=== PATIENT | female | born 1990 | race Caucasian/White ===

== ENCOUNTER 2016-09-28 11:00 | Outpatient (CLI) | payer BC ==
[~2016-09-28] VITALS: Ht 170.2 cm; Wt 61.2 kg
[~2016-09-28 11:00] MED LIST: OMEP20TA7 PO; bcp PO
== END 2016-09-28 11:19 ==
LOC: PREOP 11:00
PROVIDERS: ATTEND Surgery
DX: Z01.818 Encounter for other preprocedural examination (principal); R10.13 Epigastric pain

== ENCOUNTER 2016-10-02 07:56 | Day surgery (SDC) | payer BC ==
[~2016-10-02] VITALS: Ht 170.2 cm; Wt 61.2 kg
--- OUTSIDE RECORDS SUMMARY | 2016-10-02 08:01 | XMS REPORT | Continuity of Care Document ---
Author Author [facility] Organization [facility] Address Unknown Phone Unavailable Support Name Relationship Address Phone NAYANA BRENNER DO Caregiver [address] [place] [address] Insurance Providers Payer Name Policy Number Subscriber Name Relationship [facility] [id number] Sabino Marsh L 18 Self / Same As Patient Advance Directives Directive Response Recorded Date/Time Advance Directives No 09/28/16 10:46am Resuscitation Status Full Code 09/28/16 10:46am Problems No problem information available. Medications Current Home Medications Medication Dose Units Route Directions Days/Qty Instructions Start Date Omeprazole 20 Mg 20 Mg Oral Daily 09/28/16 [Bcp] 1 Tab Oral Daily 09/28/16 Social History Social History Problem Response Recorded Date/Time Alcohol Use Occasionally Uses 09/28/2016 10:46am Recreational Drug Use No 09/28/2016 10:46am Recent Foreign Travel No 09/28/2016 10:45am Recent Infectious Disease Exposure No 09/28/2016 10:45am Smoking Status Never a Smoker 09/28/2016 10:46am Recent Hopitalizations No 09/28/2016 10:46am Query Response Start Date Stop Date Smoking Status Never a Smoker Hospital Discharge Instructions No hospital discharge instructions. Plan of Care Discharge Date 09/28/16 11:19am Prescriptions See Medication Section Functional Status No functional status results. Allergies, Adverse Reactions, Alerts Allergen Type Severity Reaction Status Last Updated sulfamethoxazole ([id number]) Allergy Unknown RASH Active 09/28/16 Trimethoprim Allergy Unknown RASH Active 09/28/16 Immunizations No immunization records. Vital Signs Acute Vital Signs Vital Response Date/Time Height (Feet) 5 feet 09/28/2016 10:45am Height (Inches) 7.00 inches 09/28/2016 10:45am Height (Calculated Centimeters) 170.703261 cm 09/28/2016 10:45am Weight (Pounds) 135 pounds 09/28/2016 10:45am Weight (Ounces) 0.0 oz 09/28/2016 10:45am Weight (Calculated Grams) 86659.97 gm 09/28/2016 10:45am Weight (Calculated Kilograms) 61.147507 kilograms 09/28/2016 10:45am Calculated BMI 21.1 09/28/2016 10:45am Results No known relevant diagnostic tests, laboratory data and/or discharge summary. Procedures No known history of procedures. Encounters Encounter Location Arrival/Admit Date Discharge/Depart Date Attending Provider Departed Clinic [facility] 09/28/16 11:00am 09/28/16 11: 19am NAYANA BRENNER DO
--- OUTSIDE RECORDS SUMMARY | 2016-10-02 08:01 | XMS REPORT | Continuity of Care Document ---
Author Author [facility] Organization [facility] Address Unknown Phone Unavailable Support Name Relationship Address Phone NAYANA BRENNER DO Caregiver [address] [place] [address] Insurance Providers Payer Name Policy Number Subscriber Name Relationship [facility] [id number] Sabino Marsh L 18 Self / Same [...] Type Severity Reaction Status Last Updated sulfamethoxazole ([id number]) Allergy Unknown RASH Active 09/28/16 Trimethoprim Allergy Unknown RASH Active 09/28/16 Immunizations No immunization records. Vital Signs Acute Vital Signs Vital Response Date/Time Height (Feet) 5 feet 09/28/2016 10:45am Height (Inches) 7.00 inches 09/28/2016 10:45am Height (Calculated Centimeters) 170.790464 cm 09/28/2016 10:45am Weight (Pounds) 135 pounds 09/28/2016 10:45am Weight (Ounces) 0.0 oz 09/28/2016 10:45am Weight (Calculated Grams) 07970.97 gm 09/28/2016 10:45am Weight (Calculated Kilograms) 61.614539 kilograms 09/28/2016 10:45am Calculated BMI 21.1 09/28/2016 10:45am Results No known relevant diagnostic tests, laboratory data and/or discharge summary. Procedures No known history of procedures. Encounters Encounter Location Arrival/Admit Date Discharge/Depart Date Attending Provider Departed Clinic [facility] 09/28/16 11:00am 09/28/16 11: 19am NAYANA BRENNER DO
[2016-10-02] MEDS ORDERED: NS IV 1000 ML 1,000 ML IV STA (08:03)
[2016-10-02] MEDS ORDERED: HURRICAINE EXT TUBE (BENZOCAINE) XX PRN (08:15)
[2016-10-02 08:17] VITALS: BP 132/96
[2016-10-02] MEDS ORDERED: MIDAZOLAM 2 MG/2 ML (VERSED) VIAL ONE (08:20)
[2016-10-02] MEDS ORDERED: proPOfol 200 MG/20 ML (DIPRIVAN) VIAL IV ONE (08:20)
--- NOTE | 2016-10-02 08:33 | Progress Note-Pre Operative ---
Pre-Operative Progress Note H&P Reviewed The H&P was reviewed, patient examined and no changes noted. Date H&P Reviewed: Oct 02, 2016 Time H&P Reviewed: 08:33 Pre-Operative Diagnosis: epigastric abdominal pain NAYANA BRENNER DO Oct 02, 2016 8:33 am
[2016-10-02 09:00] VITALS: BP 129/93
[2016-10-02] MEDS ORDERED: SUCR1TAB36 PO (09:06)
[2016-10-02] MEDS ORDERED: PANT40TA2 PO (09:06)
--- NOTE | 2016-10-02 09:06 | Progress Note-Post Operative ---
Post-Operative Progess Note Pre-Operative Diagnosis epigastric abdominal pain Post-Operative Diagnosis Gastritis Post-Op Procedure Note Date of Procedure: Oct 02, 2016 Name of Procedure: egd c biopsy Procedure Note/Findings see note Anesthesia Type per oil filters inspector Estimated blood loss (mL): none Specimen(s) collected antrum NAYANA BRENNER DO Oct 02, 2016 9:06 am
--- NOTE | 2016-10-02 09:07 | Discharge Inst-Simple/Standard ---
Discharge Inst-Standard Patient Instructions/Follow Up Plan of Care/Instructions/FU: Follow up with Dr. Umaña in 3 weeks Take medication as directed. Activity as Tolerated: Yes Discharge Diet: No Restrictions BRIAN RASHEED APRN Oct 02, 2016 09:07
[2016-10-02 09:25] VITALS: BP 131/101
[2016-10-02 09:30] VITALS: BP 131/101
--- NOTE | 2016-10-03 12:40 | OPERATIVE REPORT ---
PROCEDURE PHYSICIAN: NAYANA BRENNER DATE OF PROCEDURE: 10/02/2016 PREOPERATIVE DIAGNOSIS: Epigastric abdominal pain. POSTOPERATIVE DIAGNOSES: Gastritis. PROCEDURE: EGD with biopsy SURGEON: Chasidy. ANESTHESIA: Per [employer]. ESTIMATED BLOOD LOSS: None. COMPLICATIONS: None. INDICATIONS: The patient is a 26-year-old female who has been having epigastric abdominal pain. She is recommended to have EGD for further evaluation. She understands the risks and benefits and wished to proceed with procedure. Consent was signed on the chart. PROCEDURE: The patient was taken to the endoscopy suite, placed in left lateral recumbent position. Timeout was performed. A scope was inserted in the mouth down the esophagus, stomach and into the duodenum without any difficulty. There were no polyps, masses or ulcerations within the duodenum. The scope was slowly retracted back. The stomach was insufflated. Along the body and antrum there were erythematous changes consistent with gastritis. There were no ulcers, polyps, masses or ulcerations visualized. Biopsy of the antrum and was obtained. The scope was retroflexed noting a hiatal hernia. No polyps, masses, or ulcerations. The scope was returned to its normal position slowly withdrawn back to the esophagus. There were no polyps, masses, ulcerations. The scope was slowly retracted until completely removed. The patient tolerated the procedure well without complication. She was taken to recovery room in stable condition. RECOMMENDATIONS: The patient will be started on Protonix 1 daily and Carafate 1 gram 4 times a day. We will have her follow-up in 3 weeks to see how she is doing at that time. If she has any changes prior to that, she should be reevaluated at that time. Job ID: [id number] Dictated Date: 10/02/2016 09:08:14 [employer] Manager [employer] Date: 10/03/2016 12:36:25 / munir
== END 2016-10-02 09:30 | disposition home or self-care (01) ==
LOC: ENDO 07:56
PROVIDERS: ATTEND Surgery
DX: K29.70 Gastritis, unspecified, without bleeding (principal)
CPT/HCPCS: 84703; 88305; 88342

== ENCOUNTER → 2016-10-26 | Outpatient (CLI) | payer BC ==
[~2016-10-26] MED LIST changes: +DOCU-143 PO; +HYDR-3812 PO; +PANT40TA2 PO; +SUCR1TAB36 PO
--- OUTSIDE RECORDS SUMMARY | 2016-10-26 07:54 | XMS REPORT | Continuity of Care Document ---
Author Author [facility] Organization [facility] Address Unknown Phone Unavailable Support Name Relationship Address Phone NAYANA BRENNER DO Caregiver [address] [place] [address] Insurance Providers Payer Name Policy Number Subscriber Name Relationship [facility] [id number] Sabino Marsh L 18 Self / Same [...] Type Severity Reaction Status Last Updated sulfamethoxazole ([id number]) Allergy Unknown RASH Active 09/28/16 Trimethoprim Allergy Unknown RASH Active 09/28/16 Immunizations No immunization records. Vital Signs Acute Vital Signs Vital Response Date/Time Height (Feet) 5 feet 09/28/2016 10:45am Height (Inches) 7.00 inches 09/28/2016 10:45am Height (Calculated Centimeters) 170.635980 cm 09/28/2016 10:45am Weight (Pounds) 135 pounds 09/28/2016 10:45am Weight (Ounces) 0.0 oz 09/28/2016 10:45am Weight (Calculated Grams) 03487.97 gm 09/28/2016 10:45am Weight (Calculated Kilograms) 61.121262 kilograms 09/28/2016 10:45am Calculated BMI 21.1 09/28/2016 10:45am Results No known relevant diagnostic tests, laboratory data and/or discharge summary. Procedures No known history of procedures. Encounters Encounter Location Arrival/Admit Date Discharge/Depart Date Attending Provider Departed Clinic [facility] 09/28/16 11:00am 09/28/16 11: 19am NAYANA BRENNER DO
--- NOTE | 2016-10-26 09:46 | Diagnostic Imaging Report ---
PROCEDURE: US Gallbladder. TECHNIQUE: Multiple real-time grayscale images were obtained over the right upper quadrant in various projections. INDICATION: Epigastric pain. The gallbladder appeared normal. No stone or sludge. The gallbladder nondilated. There is no pathological biliary ductal dilatation. Hepatic parenchyma appeared nonfocal and unremarkable. The unobstructed right kidney normal in size, cortical thickness, and echotexture. There is no ascites or fluid collection. The visualized portions of the pancreas unremarkable. IMPRESSION: Normal right upper quadrant ultrasound. Dictated by: Dictated on workstation # [id number]
== END ==
LOC: RAD 07:50
PROVIDERS: ATTEND Nurse Practitioner
DX: R10.13 Epigastric pain (principal)
CPT/HCPCS: 76705

== ENCOUNTER → 2016-11-05 | Outpatient (CLI) | payer BC ==
[~2016-11-05] MED LIST changes: +CATHETER FLUSH 10 ML SYR IV PRN
--- OUTSIDE RECORDS SUMMARY | 2016-11-05 08:50 | XMS REPORT | Continuity of Care Document ---
Author Author [facility] Organization [facility] Address Unknown Phone Unavailable Support Name Relationship Address Phone NAYANA BRENNER DO Caregiver [address] [place] [address] Insurance Providers Payer Name Policy Number Subscriber Name Relationship [facility] [id number] Sabino Marsh L 18 Self / Same [...] Type Severity Reaction Status Last Updated sulfamethoxazole ([id number]) Allergy Unknown RASH Active 09/28/16 Trimethoprim Allergy Unknown RASH Active 09/28/16 Immunizations No immunization records. Vital Signs Acute Vital Signs Vital Response Date/Time Height (Feet) 5 feet 09/28/2016 10:45am Height (Inches) 7.00 inches 09/28/2016 10:45am Height (Calculated Centimeters) 170.030154 cm 09/28/2016 10:45am Weight (Pounds) 135 pounds 09/28/2016 10:45am Weight (Ounces) 0.0 oz 09/28/2016 10:45am Weight (Calculated Grams) 11503.97 gm 09/28/2016 10:45am Weight (Calculated Kilograms) 61.356411 kilograms 09/28/2016 10:45am Calculated BMI 21.1 09/28/2016 10:45am Results No known relevant diagnostic tests, laboratory data and/or discharge summary. Procedures No known history of procedures. Encounters Encounter Location Arrival/Admit Date Discharge/Depart Date Attending Provider Departed Clinic [facility] 09/28/16 11:00am 09/28/16 11: 19am NAYANA BRENNER DO
--- NOTE | 2016-11-05 12:37 | Diagnostic Imaging Report ---
EXAMINATION: HIDA with EF measurements Indication: Abdominal pain TECHNIQUE: After the intravenous administration of 5.5 mCi of Tc 99m Choletec, imaging over the abdomen was obtained. This was followed by administration of Ensure orally to stimulate intrinsic CCK secretion, followed by continued imaging with ejection fraction measured. FINDINGS: There is homogeneous uptake in the liver with prompt bile duct and gallbladder filling seen. Bowel activity is seen at 20 minutes. Based on further imaging and gallbladder area of interest activity measurements after the administration of Ensure, the gallbladder ejection fraction is estimated at 23%. IMPRESSION: 1. Normal hepatobiliary uptake and Gallbladder filling. 2. Biliary dyskinesia. Poor gallbladder ejection fraction. Dictated by: Dictated on workstation # [id number]
== END ==
LOC: CARD 08:47
PROVIDERS: ATTEND Nurse Practitioner
DX: R10.13 Epigastric pain (principal)
CPT/HCPCS: 78227

== ENCOUNTER 2016-11-09 14:13 | Outpatient (CLI) | payer BC ==
[~2016-11-09] VITALS: Ht 170.2 cm; Wt 63.0 kg
[~2016-11-09 14:13] MED LIST changes: -CATHETER FLUSH 10 ML SYR IV PRN; -DOCU-143 PO; -HYDR-3812 PO
[2016-11-09 14:20] VITALS: BP 141/95
[2016-11-09 14:39] LABS: BASOPHILS % (AUTO) 0 % (0-10); EOSINOPHILS % (AUTO) 0 % (0-10); LYMPHOCYTES # (AUTO) 1.6 X 10^3 (1.0-4.0); LYMPHOCYTES % (AUTO) 36 % (12-44); MEAN CORPUSCULAR HEMOGLOBIN 32 PG (25-34); MEAN CORPUSCULAR HGB CONC 35 G/DL (32-36); MEAN CORPUSCULAR VOLUME 91 FL (80-99); MEAN PLATELET VOLUME 10.8 FL (7.4-10.4); MONOCYTES # (AUTO) 0.3 X 10^3 (0.0-1.0); MONOCYTES % (AUTO) 6 % (0-12); NEUTROPHILS # (AUTO) 2.6 X 10^3 (1.8-7.8); NEUTROPHILS % (AUTO) 58 % (42-75); PLATELET COUNT 171 10^3/uL (130-400); RED BLOOD COUNT 4.62 10^6/uL (4.35-5.85); RED CELL DISTRIBUTION WIDTH 12.2 % (10.0-14.5); WHITE BLOOD COUNT 4.5 10^3/uL (4.3-11.0)
== END 2016-11-09 14:30 | disposition home or self-care (01) ==
LOC: PREOP 14:13
PROVIDERS: ATTEND Surgery
DX: Z01.812 Encounter for preprocedural laboratory examination (principal); Z11.2 Encounter for screening for other bacterial diseases; K82.8 Other specified diseases of gallbladder
CPT/HCPCS: 36415; 85025; 87081

== ENCOUNTER 2016-11-15 09:25 | Day surgery (SDC) | payer BC ==
[~2016-11-15] VITALS: Ht 170.2 cm; Wt 63.0 kg
[2016-11-15] MEDS ORDERED: ceFAZolin 1,000 MG (ANCEF) VIAL ONE (09:48)
[2016-11-15] MEDS ORDERED: NS (IVPB) 50 ML ONE (09:48)
[2016-11-15] MEDS ORDERED: FAMOTIDINE 20MG/2ML IV (PEPCID) ONE (09:48)
[2016-11-15] MEDS ORDERED: ceFAZolin 1 GM/NS 50 ML IVPB IV ONE ×2 (10:15)
[2016-11-15] MEDS ORDERED: CATHETER FLUSH 10 ML SYR IV PRN (10:15)
[2016-11-15 10:17] VITALS: BP 130/86
--- NOTE | 2016-11-15 10:29 | Progress Note-Pre Operative ---
Pre-Operative Progress Note H&P Reviewed The H&P was reviewed, patient examined and no changes noted. Date H&P Reviewed: Nov 15, 2016 Time H&P Reviewed: 10:29 Pre-Operative Diagnosis: biliary dyskinesia NAYANA BRENNER DO Nov 15, 2016 10:29 am
[2016-11-15] MEDS: LACTATED RINGERS 1,000 ML IV PRN ×2 (10:45→13:35)
[2016-11-15] MEDS ORDERED: LACTATED RINGERS 1,000 ML IV ONE ×2 (12:24→13:26)
[2016-11-15] MEDS ORDERED: LIDOCAINE PF 2% 10 ML (XYLOCAINE) AMP ONE (12:24)
[2016-11-15] MEDS ORDERED: SUCCINYLCHOLINE INJ 100 MG/5 ML SYR ONE (12:24)
[2016-11-15] MEDS ORDERED: fentaNYL INJECTION 100 MCG/2 ML AMP ONE ×2 (12:24→13:31)
[2016-11-15] MEDS ORDERED: ROCURONIUM 50 MG/5 ML (ZEMURON) VIAL IV ONE (12:24)
[2016-11-15] MEDS ORDERED: ONDANSETRON 4 MG/2 ML (SDV) Z0FRAN ONE (12:24)
[2016-11-15] MEDS ORDERED: proPOfol 200 MG/20 ML (DIPRIVAN) VIAL IV ONE (12:24)
[2016-11-15] MEDS ORDERED: MIDAZOLAM 2 MG/2 ML (VERSED) VIAL ONE (12:24)
[2016-11-15] MEDS ORDERED: LIDOCAINE 1% INJ 20 ML (XYLOCAINE) VIAL ONE (12:26)
[2016-11-15] MEDS ORDERED: BUPIVACAINE 0.5% 30 ML (SENSORCAINE) VIAL ONE (12:26)
[2016-11-15] MEDS ORDERED: DEXAMETHASONE PF 10 MG/ML (DECADRON) VIAL ONE (13:16)
[2016-11-15] MEDS ORDERED: GLYCOPYRROLATE 0.2 MG/ML (ROBINUL) 2 ML VIAL ONE (14:21)
[2016-11-15] MEDS ORDERED: NEOSTIGMINE (BLOXIVERZ ) 1 MG/1ML 10 ML VIAL ONE (14:21)
--- NOTE | 2016-11-15 14:21 | Progress Note-Post Operative ---
Post-Operative Progess Note Surgeon (s)/Cost Consultant (s) Surgeon NAYANA BRENNER DO Cost Consultant: Dr. Rivera Pre-Operative Diagnosis biliary dyskinesia Post-Operative Diagnosis same Post-Op Procedure Note Date of Procedure: Nov 15, 2016 Name of Procedure Performed: lap dion c ioc Description of the Procedure: see note Findings of the Procedure see note Anesthesia Type general Estimated blood loss (mL): minimal Specimen(s) collected/removed gallbladder NAYANA BRENNER DO Nov 15, 2016 2:21 pm
[2016-11-15] MEDS ORDERED: morphine INJ 10 MG/ML 1ML (SYR OR VIAL) ONE (14:27)
[2016-11-15] MEDS ORDERED: DESFLURANE (SUPRANE) 15 ML INHAL SOLN ONE ×3 (14:30)
[2016-11-15] MEDS ORDERED: MEPERIDINE (DEMEROL) INJ 50 MG/ML IVP PRN (14:45)
[2016-11-15] MEDS ORDERED: ONDANSETRON 4 MG/2 ML (SDV) Z0FRAN IVP PRN (14:45)
[2016-11-15] MEDS ORDERED: PROMETHAZINE INJ 25 MG/ML (PHENERGAN) AMP IVP PRN (14:45)
[2016-11-15] MEDS ORDERED: fentaNYL INJECTION 100 MCG/2 ML AMP IVP PRN (14:45)
[2016-11-15] MEDS ORDERED: HYDR-3812 PO (14:46)
[2016-11-15] MEDS ORDERED: DOCU-143 PO (14:46)
--- NOTE | 2016-11-15 14:47 | Discharge Inst-Simple/Standard ---
Discharge Inst-Standard Discharge Medications New, Converted or Re-Newed RX: RX on Chart Patient Instructions/Follow Up Plan of Care/Instructions/FU: Follow up with Dr. Umaña in 2 weeks Take medication as directed. Activity as Tolerated: No Discharge Diet: No Restrictions Other Inst to Patient Follow up Appt: Make appointment for 2 weeks. Instructions: No lifting greater than 10 pounds. No strenuous activity. May shower in 24 hours, no tub bath or soaking. Use incentive spirometer at home as directed. No Smoking Skin/Wound Care: May remove bandages. You need to leave the white strips over incision on they will fall off on their own. Symptoms to Report: Appetite Changes, Extremity Discoloration, Numbness/Tingling, Swelling Increased , Bleeding Excessive, Eyesight Changes, Pain Increased, Urine Color Change, Constipation(Persistent), Fever over 101 degree F, Pain/Pressure in chest, Urinating Difficulty, Cough Up/Vomit Blood, Heart Beat Irreg/Pounding, Pain/ Pressure in jaw, Vaginal Bleeding Increase, Cramps in feet or legs, Lightheadedness, Pain/Pressure in shoulder, Diarrhea(Persistent), Memory Changes Suddenly, Questions/Concerns, Weight gain consecutive days, Dizziness/ Fainting, Nausea/Vomiting, Shortness of Breath, Weight gain over 2 pounds. If eyes or skin turn yellow notify physician. If questions or concerns contact your physician Or seek help at emergency department. BRIAN RASHEED APRN Nov 15, 2016 14:47
[2016-11-15 15:25] VITALS: BP 119/75
[2016-11-15 15:55] VITALS: BP 130/84
[2016-11-15] MEDS ORDERED: HYDROcodone/APAP 5 MG/325 MG (LORTAB) TAB ONE (16:19)
[2016-11-15 16:25] VITALS: BP 120/71
[2016-11-15] MEDS ORDERED: HYDROcodone/APAP 5 MG/325 MG (LORTAB) TAB PO ONE (16:30)
[2016-11-15 16:40] VITALS: BP 120/71
--- NOTE | 2016-11-15 18:18 | Diagnostic Imaging Report ---
Intraoperative cholangiogram. 8 seconds of fluoroscopy time and 3 cc of contrast utilized. INDICATION: Abdominal pain. Laparoscopic cholecystectomy. FINDINGS: There is good opacification of the biliary tree with no filling defects seen. There is prompt passage into the duodenum with no evidence of obstruction. IMPRESSION: No CBD stones or evidence of obstruction. Dictated by: Dictated on workstation # [id number]
--- NOTE | 2016-11-16 14:27 | OPERATIVE REPORT ---
PROCEDURE PHYSICIAN: NAYANA UMAÑA DATE OF PROCEDURE: 11/15/2016 PREOPERATIVE DIAGNOSIS: Biliary dyskinesia. POSTOPERATIVE DIAGNOSIS: Biliary dyskinesia. PROCEDURE: Laparoscopic cholecystectomy with intraoperative cholangiogram. SURGEON: Dr. Umaña. ROCK WOOL INSULATOR: Dr. Rivera, assist in retraction, dissection, and closure. ANESTHESIA: General. ESTIMATED BLOOD LOSS: Minimal. COMPLICATIONS: None. INDICATIONS: The patient is a 26-year-old female who has been having some epigastric abdominal pain. She had work-up which consisted of an ultrasound and HIDA scan which HIDA scan was consistent with biliary dyskinesia. She understands the risks and benefits of the procedure and wished to proceed with procedure. Consent was signed on the chart. PROCEDURE: The patient was taken to the operating suite. She was prepped and draped in sterile fashion. A surgical pause was performed. A 12 mm incision was made at the umbilicus and dissection was taken down to the fascia, which was then scored and grasped with [place]. The abdomen was then entered and 0 Vicryl was placed in a cqnjcj-oj-xqahi fashion for later closure. The abdomen was then insufflated until a balloon trocar was placed. Under direct visualization of the laparoscope, a 5 mm trocar was placed in the subxiphoid region and 2 5-mm trocars were placed in the right upper quadrant. The gallbladder had some omentum that was caked onto the gallbladder which was then taken down with [place]. The cystic duct and cystic artery were then dissected out. Clips were placed on the proximal and distal portion of the cystic artery. A clip was placed on the distal portion of the cystic duct. The cystic duct was then partially transected and an arrow catheter was inserted and cholangiogram was performed. There was no filling defects. Contrast made its way into the duodenum without difficulty. The catheter was then removed. Clips were placed on proximal portion of the cystic duct and it was completely transected along with the cystic artery. Hook cautery was used to dissect the gallbladder from the gallbladder fossa achieving hemostasis. Once removed, it was placed in an Endobag and removed through the 12 mm trocar site. The abdomen was then irrigated with copious amounts of irrigation and suction. The abdomen was then desufflated. Trocars were removed. The fascia was closed with 0 Vicryl, that has already been placed in a rwivrl-uc-rbotz fashion. A total of 20 mL of 0.5% Marcaine 1% lidocaine 50:50 ratio was used to anesthetize the trocar sites. The skin was then closed with 4-0 Monocryl in a subcuticular fashion. The areas were then washed and dried and Mastisol and Steri-Strips were applied and sterile bandages were applied. The patient tolerated the procedure well without any complications. She was taken to recovery room in stable condition. Job ID: [id number] Dictated Date: 11/15/2016 20:50:40 Feather Trimmer Date: 11/16/2016 14:21:02 / yahir
== END 2016-11-15 16:40 | disposition home or self-care (01) ==
LOC: DELPENDDIS → SDC 09:25
PROVIDERS: ATTEND Surgery
DX: K81.1 Chronic cholecystitis (principal)
CPT/HCPCS: 84703; 88304; 94664

== ENCOUNTER → 2020-02-16 | Outpatient (CLI) | payer BC, OTHER ==
[~2020-02-16] MED LIST changes: +ACHD5005 PO; +DOCU-143 PO
--- NOTE | 2020-02-16 12:38 | Diagnostic Imaging Report ---
INDICATION: Assessment during normal TECHNIQUE: Multiple real-time grayscale images were obtained over the gravid uterus. COMPARISON: None FINDINGS: There is presence of a single viable intrauterine currently in transverse orientation, head to maternal right. Amount of amniotic fluid appears to be within normal limits. Gestational sac appearing unremarkable. Placenta along the right anterior aspect without evidence for previa. Visualized anatomical structures including the kidneys, bladder, stomach, intracranial structures, four-chamber heart, spine and cord insertion site appearing unremarkable. There is noted 2-vessel cord. Maxillofacial structures and profile are not able be well assessed given positioning. Cervical length at 4.9 cm. Ovaries not visualized. Biometrical measurements are as follows: Biparietal 4.51 cm, age 19 weeks 5 days. Head circumference 17.12 cm, age 19 weeks 5 days. Abdominal circumference 13.76 cm, age 19 weeks 2 days. Femur length 3.18 cm, age 20 weeks 0 days. Sonographic estimate age: 19 weeks 5 days. Sonographic estimated date of delivery: 07/07/2020. Estimated Weight: 298 gm (+/- 44 gm). LMP percentile: 22%. heart rate: 144 beats per minute. number: 1 of 1. IMPRESSION: 1. Single viable intrauterine currently in transverse orientation. Sonographic estimated age 19 weeks 5 days for estimated date of delivery 07/07/2020. 2. There is note made of a two-vessel cord. Maximum facial structures not well visualized at this time. Dictated by: Dictated on workstation # [id number]
== END ==
LOC: RAD 09:41
PROVIDERS: ATTEND Obstetrics & Gynecology
DX: Z34.92 Encounter for supervision of normal pregnancy, unspecified, second trimester (principal); Z3A.19 19 weeks gestation of pregnancy
CPT/HCPCS: 76805

== ENCOUNTER 2020-06-24 07:03 | Outpatient (CLI) | payer OTHER ==
[~2020-06-24] VITALS: Ht 170 cm; Wt 86.2 kg
--- NOTE | 2020-06-24 07:05 | NUR ---
SABINO JUAN presented to unit via ambulation from home/ED, accompanied by SO, with c/o DECREASED MOVEMENT. SABINO JUAN weighed, gowned, voided, and to bed. EFHM and TOCO applied, VS taken. SABINO JUAN oriented to bed controls, call light, TV, heat, and A/C controls.
[2020-06-24 07:20] VITALS: BP 133/91
[2020-06-24 07:34] VITALS: BP 133/91
[2020-06-24 07:39] VITALS: BP 133/91
[2020-06-24 07:43] VITALS: BP 134/86
[2020-06-24] MEDS ORDERED: D5 LR IV SOLUTION 1,000 ML IV ONE (07:51)
--- NOTE | 2020-06-24 08:06 | NUR ---
Dr Chester notified of reactive nst noted, pt reports 5-6 kicks and no contractions noted on monitor. Order for discharge received.
[2020-06-24 08:20] VITALS: BP 133/91
[2020-06-24] MEDS ORDERED: PREN-37 PO (08:21)
[2020-06-24] MEDS ORDERED: CETI10CA PO (08:21)
[2020-06-24] MEDS ORDERED: METO50TA7 PO (08:21)
--- NOTE | 2020-06-24 08:30 | NUR ---
Discharge instructions explained, signed and copy to patient. pt verbalized understanding of instructions and denied questions. Ambulates self off unit accompanied by to private vehicle with belongings in hand.
--- NOTE | 2020-06-27 09:33 | Physician Query-Final Dx ---
GRETCHEN NEWBY 06/27/20 0933: Clinic Account Progress/Dx Physician Query: Please give diagnosis Please include # weeks gestation Date of Service Jun 24, 2020 at 07:03 GELA MORGAN DO 06/28/20 1427: Clinic Account Progress/Dx DIAGNOSIS: Diagnosis 38 week IUP Decreased movement GRETCHEN NEWBY Jun 27, 2020 09:33 GELA MORGAN DO Jun 28, 2020 14:27
== END 2020-06-24 08:30 | disposition home or self-care (01) ==
LOC: WSo 07:03 → LDRP 07:04 → WSo 08:30
PROVIDERS: ATTEND Obstetrics & Gynecology
DX: O36.8130 Decreased fetal movements, third trimester, not applicable or unspecified (principal); Z3A.39 39 weeks gestation of pregnancy
CPT/HCPCS: 99213

== ENCOUNTER 2020-07-01 05:09 | Inpatient (IN) | payer OTHER ==
[~2020-07-01] VITALS: Ht 170.8 cm; Wt 87.3 kg
[2020-07-01] VITALS (44 sets, daily range): BP systolic 116–142; BP diastolic 54–91
[~2020-07-01 05:09] MED LIST changes: +CETI10CA PO; +METO50TA7 PO; +PREN-37 PO
--- NOTE | 2020-07-01 06:00 | NUR ---
SABINO JUAN presented to unit via ambulation from ED, accompanied by s.o. for INDUCTION. SABINO JUAN weighed, gowned, voided, and to bed. EFHM and TOCO applied, VS taken. SABINO JUAN oriented to bed controls, call light, TV, heat, and A/C controls.
[2020-07-01] MEDS ORDERED: MISOPROSTOL 100 MCG (CYTOTEC) TAB ONE ×2 (06:21→11:04)
[2020-07-01] MEDS: D5 LR IV SOLUTION 1,000 ML IV SCH ×3 (06:23→21:39)
[2020-07-01 06:31] LABS: BASOPHILS % (AUTO) 0 % (0-10); EOSINOPHILS # (AUTO) 0.1 10^3/uL (0.0-0.3); EOSINOPHILS % (AUTO) 1 % (0-10); HEMATOCRIT 36 % (35-52); HEMOGLOBIN 11.6 g/dL (11.5-16.0); LYMPHOCYTES # (AUTO) 1.4 10^3/uL (1.0-4.0); LYMPHOCYTES % (AUTO) 21 % (12-44); MEAN CORPUSCULAR HEMOGLOBIN 29 pg (25-34); MEAN CORPUSCULAR HGB CONC 32 g/dL (32-36); MEAN CORPUSCULAR VOLUME 90 fL (80-99); MONOCYTES # (AUTO) 0.5 10^3/uL (0.0-1.0); MONOCYTES % (AUTO) 7 % (0-12); NEUTROPHILS # (AUTO) 4.9 10^3/uL (1.8-7.8); NEUTROPHILS % (AUTO) 71 % (42-75); PLATELET COUNT 161 10^3/uL (130-400); WHITE BLOOD COUNT 6.9 10^3/uL (4.3-11.0)
--- NOTE | 2020-07-01 10:10 | History & Physical-OB ---
OB - Chief Complaint & HPI Date/Time Date of Admission: Date of Admission: Jul 01, 2020 at 05:55 Date seen by a Provider: Jul 01, 2020 Time Seen by a Provider: 10:00 Chief Complaint/History OB-Reason for Admission/Chief: Induction of Labor Hx : 1 Hx Para: 0 Expected Date of Delivery: Jul 05, 2020 Gestational Age in Weeks: 39 Gestational Age in Days: 3 Indication for induction: other Admission Nurse Assessment Rev: Yes Allergies and Home Medications Allergies Coded Allergies: sulfamethoxazole (Verified Allergy, Unknown, RASH, 09/28/16) trimethoprim (Verified Allergy, Unknown, RASH, 09/28/16) Home Medications Cetirizine HCl 10 Mg Capsule, 10 MG PO DAILY, (Reported) Metoprolol Succinate 50 Mg Tab.er.24h, 50 MG PO DAILY, (Reported) Vit/Iron Fumarate/FA 1 Each Tablet, 1 EACH PO DAILY, (Reported) Patient Home Medication List Home Medication List Reviewed: Yes OB - History Hx of Present Care: Yes Ultrasounds: Normal mid trimester US (2 vessel cord) Obstetrical Complications: None, Other (abnormal quad screen w/ normal FFCDNA. 2 vessel cord) Medical Complications: None Delivery History Hx Blood Disorders: No Adverse Rxn to Tranfusion: No (n/a) Patient Past Medical History n/a Social History/Family History HIV/AIDS: No Recent Infectious Disease Expo: No Sexually Transmitted Disease: No Alcohol Use: Denies Use Recreational Drug Use: No Immunizations Hepatitis A: Yes Hepatitis B: Yes Date of Influenza Vaccine: May 04, 2020 OB - Admission Exam Physical Exam Vitals: Vital Signs 07/01/20 06:10 Temp 36.2 Pulse 90 Resp 18 B/P (MAP) 132/75 (94) HEENT: NCAT Heart: Rhythm Normal Lungs: Clear Abdomen: Gravid Extremities: Normal Reflexes: Normal Cervical Dilatation: 1cm Station: -1 Membranes: Intact Heart Rate: 130's Accelerations: Accelerations Present Decelerations: No Decelerations Short Term Variability: Present Paper Products Inspector Variability: Average (6-25) Contractions on Admission: 6-10 Minutes Apart Intensity: Mild Pickett Scoring Tool (Modified) Dilation (cm): 1-2cm (1) Effacement (%): 51-79% (2) Descent/Station: -1,0 (2) Cervix Consistency: Soft (2) Cervix Position: Anterior (2) Subtract 1 point for: Nulliparity (-1) Pickett Score: 8 Labs Laboratory Tests Test 07/01/20 06:15 Range/Units White Blood Count 6.9 4.3-11.0 10^3/uL Red Blood Count 3.96 3.80-5.11 10^6/uL Hemoglobin 11.6 11.5-16.0 g/dL Hematocrit 36 35-52 % Mean Corpuscular Volume 90 80-99 fL Mean Corpuscular Hemoglobin 29 25-34 pg Mean Corpuscular Hemoglobin Concent 32 32-36 g/dL Red Cell Distribution Width 12.3 10.0-14.5 % Platelet Count 161 130-400 10^3/uL Mean Platelet Volume 11.0 9.0-12.2 fL Immature Granulocyte % (Auto) 1 % Neutrophils (%) (Auto) 71 42-75 % Lymphocytes (%) (Auto) 21 12-44 % Monocytes (%) (Auto) 7 0-12 % Eosinophils (%) (Auto) 1 0-10 % Basophils (%) (Auto) 0 0-10 % Neutrophils # (Auto) 4.9 1.8-7.8 10^3/uL Lymphocytes # (Auto) 1.4 1.0-4.0 10^3/uL Monocytes # (Auto) 0.5 0.0-1.0 10^3/uL Eosinophils # (Auto) 0.1 0.0-0.3 10^3/uL Basophils # (Auto) 0.0 0.0-0.1 10^3/uL Immature Granulocyte # (Auto) 0.0 0.0-0.1 10^3/uL OB - Assessment/Plan/Diagnosis Assessment Assessment: induction of labor Admission Dx 30 yo @ 39.2 2 vessel cord Abnormal quad GBS neg Admission Status: Inpatient Order (span 2 midnights) Reason for Inpatient Admission: Induction of labor at 39 weeks. Plan Plan: Induction Induction Method: per Misoprostol Protocol GELA MORGAN DO Jul 01, 2020 10:10
[2020-07-01] MEDS ORDERED: MISOPROSTOL 100 MCG (CYTOTEC) TAB PO NR (11:15)
[2020-07-01] MEDS ORDERED: OXYTOCIN PRE-MIX DRIP 500 ML IV SCH (13:53)
[2020-07-01] MEDS ORDERED: OXYTOCIN PRE-MIX DRIP 500 ML IV ONE (13:58)
[2020-07-01] MEDS ORDERED: CATHETER FLUSH 10 ML SYR IV SCH (14:00)
[2020-07-02] VITALS (39 sets, daily range): BP systolic 106–153; BP diastolic 53–94
[2020-07-02] MEDS ORDERED: HYDROmorphone 2 MG/ML VIAL (DILAUDID) ONE (03:11)
[2020-07-02] MEDS ORDERED: HYDROmorphone 2 MG/ML VIAL (DILAUDID) IVP ONE (03:15)
[2020-07-02] MEDS: D5 LR IV SOLUTION 1,000 ML IV SCH (05:25)
[2020-07-02] MEDS ORDERED: MISOPROSTOL 100 MCG (CYTOTEC) TAB PO ONE (06:15)
[2020-07-02] MEDS ORDERED: FAMOTIDINE 20MG/2ML IV (PEPCID) ONE (07:57)
[2020-07-02] MEDS ORDERED: CITRIC ACID/SOB CIT (BICITRA) 30 ML UDC ONE (07:57)
[2020-07-02] MEDS ORDERED: METOCLOPRAMIDE INJ 10 MG/2 ML (REGLAN) ONE (07:57)
[2020-07-02] MEDS ORDERED: CATHETER FLUSH 10 ML SYR IV PRN (08:00)
[2020-07-02] MEDS ORDERED: ceFAZolin 2 GM IV Premixed 50 ML IV ONE (08:00)
[2020-07-02] MEDS ORDERED: CITRIC ACID/SOB CIT (BICITRA) 30 ML UDC PO ONE (08:00)
[2020-07-02] MEDS ORDERED: FAMOTIDINE 20MG/2ML IV (PEPCID) IV ONE (08:00)
[2020-07-02] MEDS ORDERED: METOCLOPRAMIDE INJ 10 MG/2 ML (REGLAN) IV ONE (08:00)
[2020-07-02] MEDS: LACTATED RINGERS 1,000 ML IV PRN ×2 (08:05→09:00)
[2020-07-02] MEDS ORDERED: OXYTOCIN PRE-MIX DRIP 500 ML IV SCH (08:10)
[2020-07-02] MEDS ORDERED: ONDANSETRON 4 MG/2 ML (SDV) Z0FRAN IVP PRN (08:15)
[2020-07-02] MEDS ORDERED: MEASLES,MUMPS,RUBELLA 1 EA INJ SC SCH (08:15)
[2020-07-02] MEDS ORDERED: TETANUS,DIPTH,PERTUSS P/F (BOOSTRIX) 0.5 ML VIAL IM SCH (08:15)
--- NOTE | 2020-07-02 08:17 | Progress Note ---
Standard Progress Note Progress Notes/Assess & Plan Date Seen by a Provider: Jul 02, 2020 Time Seen by a Provider: 07:35 Progress/Assessment & Plan Came in to evaluate the patient which has been an induction since yesterday morning. Cytotec yesterday, and Pitocin throughout the night reaching max dose of 20 mu/ making little to no change since admission despite all measures and adequate contraction pattern. Discussed continuing on with induction and AROM, vs proceeding with PLTCS. Risk involved discussed, and patient and decide to proceed with PLTCS. GELA MORGAN DO Jul 02, 2020 08:17
[2020-07-02] MEDS ORDERED: fentaNYL INJECTION 100 MCG/2 ML AMP ONE (08:24)
[2020-07-02] MEDS ORDERED: ONDANSETRON 4 MG/2 ML (SDV) Z0FRAN ONE (09:03)
[2020-07-02] MEDS ORDERED: PHENYLEPHRINE 100 MCG/ML 10 ML (ANESTHESIA) SYR ONE (09:03)
[2020-07-02] MEDS ORDERED: BUPIVACAINE 0.5% 30 ML (SENSORCAINE) VIAL ONE (09:09)
[2020-07-02] MEDS ORDERED: METHYLERGONOVINE 0.2 MG/ML (METHERGINE) AMP ONE (09:20)
[2020-07-02] MEDS ORDERED: OXYTOCIN PRE-MIX DRIP 1,000 ML IV ONE (09:27)
[2020-07-02] MEDS ORDERED: diphenhydrAMINE 50 MG/ML INJ (BENADRYL) IV PRN (10:15)
[2020-07-02] MEDS ORDERED: ONDANSETRON 4 MG/2 ML (SDV) Z0FRAN IV PRN (10:15)
[2020-07-02] MEDS ORDERED: METOCLOPRAMIDE INJ 10 MG/2 ML (REGLAN) IV PRN (10:15)
[2020-07-02] MEDS ORDERED: NALOXONE 0.4 MG/ML 1 ML (NARCAN) VIAL IV PRN ×2 (10:15)
--- NOTE | 2020-07-02 11:00 | NUR ---
Pt transferred to room 306 via bed accompanied by RN, S.O. and . Pt and S.O. oriented to room and call light. packet explained. VS taken, IV pitocin to pump, toradol given. Calf SCD's on and activated. assistance provided per this RN. Pt and S.O. deny further needs at this time.
[2020-07-02] MEDS: KETOROLAC 30 MG/ML VIAL IV SCH ×2 (11:26→18:16)
--- NOTE | 2020-07-02 11:50 | NUR ---
RT notified of need for IS instruction
--- NOTE | 2020-07-02 12:00 | NUR ---
Report to Rina Elder RN Addendum: 07/02/20 at 1538 by DAV TREADWELL RN Disregard. This RN continuing to care for pt.
--- NOTE | 2020-07-02 13:45 | NUR ---
Pt assisted up to bathroom per this RN. Pt unable to void at this time. Reassurance given. Pericare performed. Pt assisted back to bed. Ice pack to incision and pain pill given.
[2020-07-02] MEDS: HYDROcodone/APAP 5 MG/325 MG (LORTAB) TAB PO PRN ×3 (13:50→21:29)
[2020-07-02] MEDS ORDERED: CATHETER FLUSH 10 ML SYR IV SCH (14:00)
--- NOTE | 2020-07-02 15:15 | NUR ---
Pt assisted up to bathroom at this time. +void 800ml. Pericare performed, fresh vpad and underwear on. Pt requesting second pain pill, see eMar.
--- NOTE | 2020-07-02 19:55 | NUR ---
patient and walking halls. to nursery for assessment. No questions or concerns voiced at this time.
[2020-07-02] MEDS: DOCUSATE SODIUM 100 MG (COLACE) CAP PO SCH ×2 (20:06→21:41)
--- NOTE | 2020-07-02 21:30 | OPERATIVE REPORT ---
DATE OF SERVICE: PREOPERATIVE DIAGNOSES: 1. A 30-year-old G1, P0 at 39 weeks and 4 days gestation. 2. Failure to progress. 3. Two-vessel umbilical cord. POSTOPERATIVE DIAGNOSES: 1. A 30-year-old G1, P0 at 39 weeks and 4 days gestation. 2. Failure to progress. 3. Two-vessel umbilical cord. PROCEDURE: Primary low transverse section. SURGEON: Ramesh Chester DO ANESTHESIA: Spinal. ESTIMATED BLOOD LOSS: 600 mL. URINE OUTPUT: 50 mL clear at the end of the procedure. FLUIDS: 1100 mL lactated Ringer's solution. FINDINGS: A live female infant weighing 7 pounds 5 ounces, Apgars of 7 and 9. Grossly normal appearing uterus, bilateral fallopian tubes and ovaries. SPECIMEN SENT: Placenta. INDICATIONS FOR PROCEDURE: This 30-year-old female is the patient was brought in for induction yesterday morning. She was found to be unfavorable at induction time. Induction reasoning was due to three-vessel cord and increased risk for stillbirth. At her induction, we started with oral misoprostol 100 mcg was given and a second dose was given 50 mcg 4 hours later. Pitocin augmentation was then started and the patient was continued on Pitocin throughout the afternoon and into the evening. She reached a maximum dose of 20 milliunits of Pitocin throughout the night and was di in a regular pattern for over 5 hours with little to no cervical change from admission. She was still 1 to 2 cm this morning when I came in to check on the patient. I discussed with her and her proceeding with the induction, continuing the Pitocin, AROM rupture of membranes and seeing if that helps the progression or to proceed with primary due to failure to progress. Risk of all these options were reviewed with the patient and her . After all their questions were answered, they agreed to proceed with primary . Consent was obtained and the patient was then taken to the operating room. OPERATIVE REPORT IN DETAIL: Once in the operating room, spinal analgesia was found to be adequate. She was placed in the supine position with a leftward tilt, prepped and draped in normal sterile fashion. A timeout was performed and anesthesia was tested. I then make a Pfannenstiel skin incision with a knife and carried it down to the underlying fascia using Bovie cautery. The fascial incision extended laterally using Bovie cautery. The superior aspect of the fascial incision was then grasped with Jorden clamps, tented upward and dissected off the underlying rectus muscles. The inferior aspect of the fascial incision was then grasped with Jorden clamps, tented up and dissected off the underlying rectus muscles. The rectus muscles were then dissected down the midline using sharp dissection, which exposed the peritoneum, which I entered bluntly and extended using blunt traction. Mateusz ring retractor was placed in the peritoneal incision, which offers excellent lateral sidewall retraction. I then identified the lower uterine segment, which was found to be thinned out and make a low transverse incision to the vesicouterine peritoneum and bluntly dissected off the lower uterine segment, creating a bladder flap. I then proceeded with myotomy until membranes were visualized, at which point I extended the uterine incision laterally and superiorly using bandage scissors. Amniotomy was performed in the process of doing this, clear fluid was noted. Infant was found in vertex presentation. With gentle fundal pressure, the infant's head is elevated up the incision where it was delivered through the incision. The nares and oropharynx were bulb suctioned. Nuchal cord was reduced. Anterior and posterior shoulders were delivered and the infant was then brought to the operative field. Cord was doubly clamped and cut and infant was handed off to waiting nurses in attendance. Cord blood was collected, 3-vessel cord with intact placenta was delivered spontaneously thereafter. IV Pitocin was initiated to facilitate uterine contraction. Uterine fundus became firmer with bimanual massage. The uterus was then exteriorized and cleared of all endometrial clots and debris. I then proceeded with closing the uterine incision using 0 Vicryl suture in running locked fashion. Second layer of imbricating 0 Monocryl was placed. Excellent hemostasis was noted after doing this; however, there is still some lagging uterine atony, therefore I have anesthesia give 0.2 mg of Methergine IM and this atony resolved shortly thereafter. Once the uterus was placed back within the pelvis, I copiously irrigated the pelvis using normal saline. Once again, there was no active bleeding noted from any of my dissection planes. I placed Interceed antiadhesive over my low transverse incision and then removed the Mateusz ring retractor. I proceeded with closing the peritoneum using 3-0 Vicryl suture in a running fashion. The rectus muscle was reapproximated using 3-0 Vicryl suture in interrupted fashion. The fascia was reapproximated using 0 Vicryl suture in a running fashion. Subcutaneous tissue was reapproximated using 3-0 plain interrupted subcutaneous stitch and the skin was reapproximated using 4-0 Monocryl in a running subcuticular. Dermabond was applied to incision and sterile dressing with adhesive white tape. The patient tolerated the procedure well and was taken to recovery area in stable condition. Lap and sponge count was correct at the end of the procedure. Instrument counts correct as well. Job ID: [id number] DocumentID: [id number] Dictated Date: 07/02/2020 09:57:26 Spool Cleaner Hand Date: 07/02/2020 21:30:05 Dictated By: DO SHELLY SAHNI
[2020-07-03 00:45] VITALS: BP 130/77
[2020-07-03] MEDS: KETOROLAC 30 MG/ML VIAL IV SCH ×2 (00:47→06:59)
[2020-07-03 04:15] VITALS: BP 119/76
[2020-07-03] MEDS: HYDROcodone/APAP 5 MG/325 MG (LORTAB) TAB PO PRN ×3 (04:25→18:45)
[2020-07-03 05:36] LABS: BASOPHILS % (AUTO) 0 % (0-10); EOSINOPHILS % (AUTO) 0 % (0-10); HEMATOCRIT 31 % (35-52)
[2020-07-03 05:38] LABS: HEMOGLOBIN 9.9 g/dL (11.5-16.0); LYMPHOCYTES # (AUTO) 1.4 10^3/uL (1.0-4.0); LYMPHOCYTES % (AUTO) 12 % (12-44); MEAN CORPUSCULAR HEMOGLOBIN 30 pg (25-34); MEAN CORPUSCULAR HGB CONC 32 g/dL (32-36); MEAN CORPUSCULAR VOLUME 92 fL (80-99); MONOCYTES # (AUTO) 0.7 10^3/uL (0.0-1.0); MONOCYTES % (AUTO) 6 % (0-12); NEUTROPHILS # (AUTO) 9.4 10^3/uL (1.8-7.8); NEUTROPHILS % (AUTO) 80 % (42-75); PLATELET COUNT 127 10^3/uL (130-400); WHITE BLOOD COUNT 11.7 10^3/uL (4.3-11.0)
--- NOTE | 2020-07-03 08:13 | Postpartum Progress Note ---
Note Note Day # 1 Subjective: Patient is without complaints. Ambulating, voiding. Tolerating a regular diet without nausea or vomiting. Normal lochia. Pain is well controlled with oral pain medications. Objective: Physical Exam: General - Alert and oriented, no apparent distress Abdomen - Soft, appropriately tender to palpation, non-distended, fundus firm at umbilicus Extremities - no edema, negative Jung's bilaterally Incision- c/d/i Assessment: POD 1 PLTCS Acute blood loss anemia Plan: Routine care. Encourage breast feeding. Encourage ambulation. Ferrous sulfate supplementation. Plan for discharge today Vitals - Labs Vital Signs - I&O Vital Signs Date Time Temp Pulse Resp B/P (MAP) Pulse Ox O2 Delivery O2 Flow Rate FiO2 07/03/20 04:15 36.4 80 18 119/76 (90) 99 Room Air 07/03/20 00:45 36.7 98 18 130/77 (94) 97 Room Air 07/02/20 20:08 36.1 104 18 128/79 (95) 98 Room Air 07/02/20 18:15 36.4 91 18 134/79 (97) 97 Room Air 07/02/20 15:00 Room Air 07/02/20 13:50 36.7 92 18 133/76 (95) 97 Room Air 07/02/20 11:20 36.4 94 18 119/74 (89) 99 Room Air 07/02/20 10:51 36.1 21 128/86 (100) 98 Room Air 07/02/20 10:36 37.0 20 133/71 (91) 96 Room Air 07/02/20 10:21 36.3 16 124/53 (76) 96 Room Air 07/02/20 10:06 36.7 24 106/73 (84) 96 Room Air 07/02/20 09:51 36.5 24 119/75 (90) 97 Room Air 07/02/20 08:20 94 18 133/91 (105) I & O 07/03/20 07:00 Intake Total 4250 ml Output Total 3850 ml Balance 400 ml Labs Laboratory Tests 07/02/20 08:58: Coronavirus (COVID-19)(PCR) Negative 07/03/20 05:03: White Blood Count 11.7H, Red Blood Count 3.35L, Hemoglobin 9.9L, Hematocrit 31L, Mean Corpuscular Volume 92, Mean Corpuscular Hemoglobin 30, Mean Corpuscular Hemoglobin Concent 32, Red Cell Distribution Width 12.5, Platelet Count 127L, Mean Platelet Volume 12.0, Immature Granulocyte % (Auto) 1, Neutrophils (%) (Auto) 80H, Lymphocytes (%) (Auto) 12, Monocytes (%) (Auto) 6, Eosinophils (%) (Auto) 0, Basophils (%) (Auto) 0, Neutrophils # (Auto) 9.4H, Lymphocytes # (Auto) 1.4, Monocytes # (Auto) 0.7, Eosinophils # (Auto) 0.0, Basophils # (Auto) 0.0, Immature Granulocyte # (Auto) 0.1 GELA MORGAN DO Jul 03, 2020 08:13
--- NOTE | 2020-07-03 08:40 | NUR ---
Dr. Chester here to see pt. Plan for discharge tomorrow
[2020-07-03] MEDS ORDERED: ACHD5005 PO (08:45)
[2020-07-03] MEDS ORDERED: IBUP-844 PO (08:45)
[2020-07-03] MEDS ORDERED: DCS100C PO (08:45)
--- NOTE | 2020-07-03 08:48 | Discharge Inst-Women's Service ---
Discharge Inst-Women's Serv Depart Medication/Instructions New, Converted or Re-Newed RX: RX on Chart Final Diagnosis PO PLTCS day 2 Problems Reviewed?: Yes Consults/Follow Up Additional Follow Up: Yes Orders/Referrals DR. Chester in 7-10 days, and 6 weeks. Activity Activity: Activity as Tolerated Driving Instructions: No Driving for 1 Week NO SMOKING: NO SMOKING Nothing Inside Vagina: No Douching, No [place], No Tampons Diet Discharge Diet: No Restrictions Symptoms to Report to : Bleeding Excessive, Pain Increased, Fever Over 101 Degrees F, Vaginal Bleeding Increase, Questions/Concerns For Any Problems or Questions: Contact Your Physician Skin/Wound Care Infection Signs and Symptoms: Increased Redness, Foul Odor of Wound, Increased Drainage, Skin Itchy or Has a Rash, Increased Swelling, Temperature Above 101 F Operative Area Clean and Dry: Keep Incision Clean/Dry Stitches/[place]/Dermabond: Dermabond, Care of Stitches Bathing Instructions: GELA Soto DO Jul 03, 2020 08:48
[2020-07-03] MEDS: DOCUSATE SODIUM 100 MG (COLACE) CAP PO SCH ×2 (10:58→20:51)
[2020-07-03 10:59] VITALS: BP 117/64
[2020-07-03 14:43] VITALS: BP 128/69
[2020-07-03] MEDS: IBUPROFEN 600 MG (MOTRIN) TAB PO SCH ×2 (14:43→20:51)
[2020-07-03 20:52] VITALS: BP 131/70
[2020-07-04 02:46] VITALS: BP 111/65
[2020-07-04] MEDS: IBUPROFEN 600 MG (MOTRIN) TAB PO SCH ×2 (02:46→09:10)
--- NOTE | 2020-07-04 07:24 | Postpartum Progress Note ---
Note Note Day # 2 Subjective: Patient is without complaints. Ambulating, voiding. Tolerating a regular diet without nausea or vomiting. Normal lochia. Pain is well controlled with oral pain medications. Objective: Physical Exam: General - Alert and oriented, no apparent distress Abdomen - Soft, appropriately tender to palpation, non-distended, fundus firm at umbilicus Extremities - no edema, negative Jung's bilaterally Incision- c/d/i Assessment: POD 2 PLTCS Plan: Routine care. Encourage breast feeding. Encourage ambulation. Ferrous sulfate supplementation. Plan for discharge today Vitals - Labs Vital Signs - I&O Vital Signs Date Time Temp Pulse Resp B/P (MAP) Pulse Ox O2 Delivery O2 Flow Rate FiO2 07/04/20 02:46 36.7 81 18 111/65 (80) 98 Room Air 07/03/20 20:52 36.5 92 18 131/70 (90) 97 Room Air 07/03/20 14:43 36.7 87 18 128/69 (88) 98 Room Air 07/03/20 10:59 36.7 87 18 117/64 (81) 98 Room Air GELA MORGAN DO Jul 04, 2020 07:24
[2020-07-04 07:29] VITALS: BP 120/68
--- NOTE | 2020-07-04 07:30 | NUR ---
RN to room for assessment. VSS. Pt reports minimal bleeding and no clots expressed. Dr. Chester at bedside discussing plan to discharge.
[2020-07-04] MEDS: DOCUSATE SODIUM 100 MG (COLACE) CAP PO SCH (09:10)
--- NOTE | 2020-07-04 09:20 | NUR ---
Discharge instructions explained to pt with copy provided. Pt verbalizes understanding and signs to verify. Pt denies any needs or concerns at this time
[2020-07-04 12:30] VITALS: BP 120/68
--- NOTE | 2020-07-04 12:30 | NUR ---
Pt ambulates off unit with , S.O, and RN. All belongings remain with pt. No s/s of distress noted.
== END 2020-07-04 12:30 | disposition home or self-care (01) | DRG 787 ==
LOC: LDRP 05:55 → WS 07-02 08:41
PROVIDERS: ADMIT Obstetrics & Gynecology; ATTEND Obstetrics & Gynecology
PROC: 10D00Z1 Extraction of Products of Conception, Low, Open Approach (ICD-10-PCS; principal; 2020-07-02 08:37)
DX: O62.0 Primary inadequate contractions (principal); D62 Acute posthemorrhagic anemia; Z3A.39 39 weeks gestation of pregnancy; Z37.0 Single live birth; O69.89X0 Labor and delivery complicated by other cord complications, not applicable or unspecified; O90.81 Anemia of the puerperium
CPT/HCPCS: 36415; 85025; 86850; 86900; 86901; 87635; 94664

== ENCOUNTER → 2022-05-29 | Outpatient (CLI) | payer OTHER ==
[~2022-05-29] MED LIST changes: +DOCU-239 PO; +IBUP-844 PO; +OMEP20TA56 PO; -OMEP20TA7 PO
--- NOTE | 2022-05-29 15:55 | Diagnostic Imaging Report ---
PROCEDURE: US OB SINGLE FETUS <14 WKS. TECHNIQUE: Multiple real-time grayscale images were obtained over the gravid uterus in various projections. INDICATION: Abnormal hCG levels. FINDINGS: There is a smith intrauterine gestation. Cardiac pulsatility can be confirmed visually however owing to activity and motion, we were unable to measure its actual rate. Visually, it appeared unremarkable. There is a smith intrauterine gestation with measurements correlating with an estimated age 8 weeks 6 days. This is congruent with the last menstrual period. The left ovary could not be visualized. The right ovary appeared normal. No abnormal cyst formation. Amniotic fluid volume is unremarkable. The yolk sac is identified. No rubi-sac or subchorionic hemorrhage. No evidence for extrauterine gestation. No maternal free fluid. IMPRESSION: Early smith viable IUP measures 8 weeks 6 days with no pathological finding identified and nonvisualization of the left ovary. Dictated by: Dictated on workstation # [id number]
== END ==
LOC: RAD 14:00
PROVIDERS: ATTEND Nurse Practitioner Women's Health
DX: O00.01 Abdominal pregnancy with intrauterine pregnancy (principal); Z3A.08 8 weeks gestation of pregnancy
CPT/HCPCS: 76801

== ENCOUNTER → 2022-08-15 | Outpatient (CLI) | payer OTHER ==
--- NOTE | 2022-08-15 14:26 | Diagnostic Imaging Report ---
INDICATION: anatomy survey TECHNIQUE: Multiple real-time grayscale images were obtained over the gravid uterus. COMPARISON: None FINDINGS: A live intrauterine in transverse lie with head to maternal left. Placenta is posteriorly positioned. The inferior border of the placenta is less than 2 cm from the internal cervical os and may partially cover the internal cervical os. The ROSETTE is normal at 15.05 cm. Cervix measures approximately 7.1 cm in length. Following anatomy structures are visualized and normal: Right ventricular outflow tract, four-chamber heart, left ventricular outflow tract, stomach, umbilical cord insertion, kidneys, urinary bladder, three-vessel cord, cerebral ventricles, cerebellum, cisterna magna, spine, profile and extremities. Biometrical measurements are as follows: Biparietal 4.73 cm, age 20 weeks 3 days. Head circumference 17.59 cm, age 20 weeks 1 days. Abdominal circumference 14.74 cm, age 20 weeks 1 days. Femur length 3.21 cm, age 20 weeks 0 days. Sonographic estimate age: 20 weeks 2 days. Sonographic estimated date of delivery: 12/31/2022. Estimated Weight: 328 gm (+/- 48 gm). LMP percentile: 32%. heart rate: 129 beats per minute. number: 1 of 1. IMPRESSION: 1. Placenta previa with partial coverage of the internal cervical os. Follow-up ultrasound is recommended to reassess placental position as the progresses. 2. Normal anatomy survey. Dictated by: Dictated on workstation # [id number]
== END ==
LOC: RAD 11:42
PROVIDERS: ATTEND Nurse Practitioner Women's Health
DX: Z34.02 Encounter for supervision of normal first pregnancy, second trimester (principal); Z3A.20 20 weeks gestation of pregnancy
CPT/HCPCS: 76805

== ENCOUNTER 2022-12-18 05:42 | Outpatient (CLI) | payer OTHER ==
[~2022-12-18] VITALS: Ht 170.2 cm; Wt 86.8 kg
[2022-12-24] MEDS ORDERED: DOCU100C37 PO (07:21)
[2022-12-24] MEDS ORDERED: IBUP-844 PO (07:22)
[2022-12-24] MEDS ORDERED: ACHD5005 PO (07:22)
== END 2022-12-18 18:07 | disposition home or self-care (01) ==
LOC: PREOP 05:42
PROVIDERS: ATTEND Obstetrics & Gynecology
DX: Z01.818 Encounter for other preprocedural examination (principal)

== ENCOUNTER 2022-12-24 05:35 | Inpatient (IN) | payer OTHER ==
[2022-12-24] VITALS (12 sets, daily range): BP systolic 106–132; BP diastolic 58–95
[~2022-12-24] VITALS: Ht 170.2 cm; Wt 86.8 kg
[2022-12-24] MEDS ORDERED: ceFAZolin INJECTION 2,000 MG in NS (IVPB) 50 ML IV ONE (05:45)
[2022-12-24] MEDS ORDERED: CATHETER FLUSH 10 ML SYR IV PRN (05:45)
[2022-12-24] MEDS ORDERED: LACTATED RINGERS 1,000 ML IV PRN ×2 (05:45)
[2022-12-24] MEDS ORDERED: METOCLOPRAMIDE INJ 10 MG/2 ML (REGLAN) IV ONE (05:45)
[2022-12-24] MEDS ORDERED: FAMOTIDINE 20MG/2ML IV (PEPCID) IV ONE (05:45)
[2022-12-24] MEDS ORDERED: CITRIC ACID/SOB CIT (BICITRA) 30 ML UDC PO ONE (05:45)
[2022-12-24 06:16] LABS: BASOPHILS % (AUTO) 0 % (0-10); LYMPHOCYTES % (AUTO) 19 % (12-44); MEAN CORPUSCULAR VOLUME 85 fL (80-99)
[2022-12-24 06:18] LABS: EOSINOPHILS % (AUTO) 1 % (0-10); HEMATOCRIT 32 % (35-52); HEMOGLOBIN 10.4 g/dL (11.5-16.0); LYMPHOCYTES # (AUTO) 1.6 10^3/uL (1.0-4.0); MEAN CORPUSCULAR HEMOGLOBIN 28 pg (25-34); MEAN CORPUSCULAR HGB CONC 33 g/dL (32-36); MEAN PLATELET VOLUME 10.8 fL (9.0-12.2); MONOCYTES # (AUTO) 0.5 10^3/uL (0.0-1.0); MONOCYTES % (AUTO) 6 % (0-12); NEUTROPHILS # (AUTO) 6.2 10^3/uL (1.8-7.8); NEUTROPHILS % (AUTO) 73 % (42-75); PLATELET COUNT 145 10^3/uL (130-400); WHITE BLOOD COUNT 8.5 10^3/uL (4.3-11.0)
[2022-12-24 06:23] LABS: SMEAR SCAN COMMENT YES
[2022-12-24 06:28] LABS: ALBUMIN 3.2 GM/DL (3.2-4.5); POTASSIUM 3.6 MMOL/L (3.6-5.0)
[2022-12-24 06:29] LABS: CALCIUM 8.8 MG/DL (8.5-10.1)
[2022-12-24 06:30] LABS: TOTAL PROTEIN 6.2 GM/DL (6.4-8.2)
[2022-12-24 06:32] LABS: BILIRUBIN,TOTAL 0.2 MG/DL (0.1-1.0)
[2022-12-24 06:34] LABS: CREATININE SERUM 0.62 MG/DL (0.60-1.30)
--- NOTE | 2022-12-24 06:41 | History & Physical-OB ---
OB - Chief Complaint & HPI Date/Time Date of Admission: Date of Admission: December 24, 2022 at 05:35 Date seen by a Provider: December 24, 2022 Time Seen by a Provider: 07:00 Chief Complaint/History OB-Reason for Admission/Chief: Section Hx : 2 Hx Para: 1 Expected Date of Delivery: December 31, 2022 Gestational Age in Weeks: 39 Gestational Age in Days: 0 Indication for : desires repeat Admission Nurse Assessment Rev: Yes Allergies and Home Medications Allergies Coded Allergies: sulfamethoxazole (Verified Allergy, Unknown, RASH, 12/18/22) trimethoprim (Verified Allergy, Unknown, RASH, 12/18/22) Patient Home Medication List Home Medication List Reviewed: Yes Cetirizine HCl (Zyrtec) 10 Mg Capsule, 10 MG PO DAILY, (Reported) Entered as Reported by: SON ELAM on 06/24/20820 Last Action: Reviewed Metoprolol Succinate (Metoprolol Succinate) 50 Mg Tab.er.24h, 50 MG PO DAILY, (Reported) Entered as Reported by: SON ELAM on 06/24/20820 Last Action: Reviewed Vit/Iron Fumarate/FA ( Tablet) 1 Each Tablet, 1 EACH PO DAILY, (Reported) Entered as Reported by: SON ELAM on 06/24/20820 Last Action: Reviewed Discontinued Medications Docusate Sodium (Dok) 100 Mg Capsule, 100 MG PO BID PRN for CONSTIPATION-1ST LINE Discontinued Reason: No Longer Taking Prescribed by: GELA MORGAN on 07/03/20844 Hydrocodone/Acetaminophen (Hydrocodone-Acetamin 5-325 mg) 1 Each Tablet, 1-2 TAB PO Q6HR PRN for PAIN-MODERATE (5-7) Discontinued Reason: No Longer Taking Prescribed by: GELA MORGAN on 07/03/20844 Ibuprofen (Ibu) 600 Mg Tablet, 600 MG PO Q6H Discontinued Reason: No Longer Taking Prescribed by: GELA MORGAN on 07/03/20844 OB - History Hx of Present Ultrasounds: Normal mid trimester US Obstetrical Complications: None Medical Complications: None Information Induced Hypertension: No Maternal Gestational Diabetes: No Hemorrhage: No Obstetrical History Hx : 2 Hx Para: 1 Hx # Term Pregnancies: 1 Number of Living Children: 1 Hx Termination: No Hx Multiple Gestation: No Hx Ectopic : No Hx Stillbirth: No Hx Complication: No Hx Induced Hypertens: No Hx Maternal Gestational Diabet: No Hx Hemorrhage: No Delivery History Hx Dystocia: No Hx Forceps Assisted Delivery: No Hx Vacuum Extraction Assisted: No Hx Placenta Abnormality: No Hx Distress: No Hx Large For Gestational Age I: No Hx Small for Gestational Age I: No Hx Section: Yes Hx Vaginal Delivery Post C-Sec: No Hx Blood Disorders: No Adverse Rxn to Tranfusion: No (n/a) Patient Past Medical History Benign HTN Social History/Family History Alcohol Use: Denies Use Recreational Drug Use: No Smoking Cessation: Never smoker 2nd Hand Smoke Exposure: No Immunizations Influenza Vaccine Up-to-Date: Yes; Up-to-Date First/Initial COVID19 Vaccine: 11/06 Second COVID19 Vaccination: 12/07 Third COVID19 Vaccination Date: 12/08 COVID19 Vaccine Set Decorator: [employer] Hepatitis A: Yes Hepatitis B: Yes Tetanus Booster (TDap): Less than 5yrs Rubella: immune RPR/VDRL: Negative GBS Status: Negative HBsAG: Negative OB - Admission Exam Physical Exam Vitals: Vital Signs 12/24/22 05:46 Temp 36.8 Pulse 96 Resp 18 B/P (MAP) 130/80 (97) Pulse Ox 98 O2 Delivery Room Air Heart: Rhythm Normal Lungs: Clear Abdomen: Gravid Extremities: Edema Reflexes: Normal Membranes: Intact Labs Laboratory Tests Test 12/24/22 05:50 Range/Units White Blood Count 8.5 4.3-11.0 10^3/uL Red Blood Count 3.71 L 3.80-5.11 10^6/uL Hemoglobin 10.4 L 11.5-16.0 g/dL Hematocrit 32 L 35-52 % Mean Corpuscular Volume 85 80-99 fL Mean Corpuscular Hemoglobin 28 25-34 pg Mean Corpuscular Hemoglobin Concent 33 32-36 g/dL Red Cell Distribution Width 13.1 10.0-14.5 % Platelet Count 145 130-400 10^3/uL Mean Platelet Volume 10.8 9.0-12.2 fL Immature Granulocyte % (Auto) 1 % Neutrophils (%) (Auto) 73 42-75 % Lymphocytes (%) (Auto) 19 12-44 % Monocytes (%) (Auto) 6 0-12 % Eosinophils (%) (Auto) 1 0-10 % Basophils (%) (Auto) 0 0-10 % Neutrophils # (Auto) 6.2 1.8-7.8 10^3/uL Lymphocytes # (Auto) 1.6 1.0-4.0 10^3/uL Monocytes # (Auto) 0.5 0.0-1.0 10^3/uL Eosinophils # (Auto) 0.0 0.0-0.3 10^3/uL Basophils # (Auto) 0.0 0.0-0.1 10^3/uL Immature Granulocyte # (Auto) 0.1 0.0-0.1 10^3/uL Percent Immature Platelet Fraction 5.3 0.0-7.6 % Sodium Level 138 135-145 MMOL/L Potassium Level 3.6 3.6-5.0 MMOL/L Chloride Level 109 H 98-107 MMOL/L Carbon Dioxide Level 18 L 21-32 MMOL/L Anion Gap 11 5-14 MMOL/L Blood Urea Nitrogen 7 7-18 MG/DL Creatinine 0.62 0.60-1.30 MG/DL Estimat Glomerular Filtration Rate 121 BUN/Creatinine Ratio 11 Glucose Level 80 70-105 MG/DL Calcium Level 8.8 8.5-10.1 MG/DL Corrected Calcium 9.4 8.5-10.1 MG/DL Total Bilirubin 0.2 0.1-1.0 MG/DL Aspartate Amino Transf (AST/SGOT) 15 5-34 U/L Alkaline Phosphatase 158 H 40-136 U/L Total Protein 6.2 L 6.4-8.2 GM/DL Albumin 3.2 3.2-4.5 GM/DL Smear Scan YES OB - Assessment/Plan/Diagnosis Assessment Assessment: section Admission Dx Repeat section Admission Status: Inpatient Order (span 2 midnights) Reason for Inpatient Admission: Repeat section Plan Plan: Section NATALIO CHI December 24, 2022 06:41
[2022-12-24] MEDS ORDERED: fentaNYL INJ 100 MCG/2 ML AMP ONE (07:01)
[2022-12-24] MEDS ORDERED: OXYTOCIN PRE-MIX DRIP 500 ML IV ONE (07:01)
--- NOTE | 2022-12-24 07:20 | Discharge Inst-Women's Service ---
Discharge Inst-Women's Serv Depart Medication/Instructions New, Converted or Re-Newed RX: Transmitted to Pharmacy Final Diagnosis POD 2 RLTCS Problems Reviewed?: Yes Consults/Follow Up Additional Follow Up: Yes Orders/Referrals Dr. Chester in 7-10 days and in 6 weeks Activity Activity: Activity as Tolerated Driving Instructions: No Driving for 1 Week NO SMOKING: NO SMOKING Nothing Inside Vagina: No Douching, No [place], No Tampons Diet Discharge Diet: No Restrictions Symptoms to Report to : Bleeding Excessive, Pain Increased, Fever Over 101 Degrees F, Vaginal Bleeding Increase, Questions/Concerns For Any Problems or Questions: Contact Your Physician Skin/Wound Care Infection Signs and Symptoms: Increased Redness, Foul Odor of Wound, Increased Drainage, Skin Itchy or Has a Rash, Increased Swelling, Temperature Above 101 F Operative Area Clean and Dry: Keep Incision Clean/Dry Stitches/[place]/Dermabond: Dermabond, Care of Stitches Bathing Instructions: GELA Soto DO December 24, 2022 07:20
[2022-12-24] MEDS ORDERED: DOCU100C37 PO (07:21)
[2022-12-24] MEDS ORDERED: ACHD5005 PO (07:22)
[2022-12-24] MEDS ORDERED: IBUP-844 PO (07:22)
[2022-12-24] MEDS ORDERED: MEASLES,MUMPS,RUBELLA 1 EA INJ SC SCH (07:30)
[2022-12-24] MEDS ORDERED: TETANUS,DIPTH,PERTUSS P/F (BOOSTRIX) 0.5 ML VIAL IM SCH (07:30)
[2022-12-24] MEDS ORDERED: ONDANSETRON 4 MG/2 ML (SDV) Z0FRAN IVP PRN (07:30)
[2022-12-24] MEDS ORDERED: NALOXONE 0.4 MG/ML 1 ML (NARCAN) VIAL IV PRN (07:30)
[2022-12-24] MEDS: OXYTOCIN PRE-MIX DRIP 500 ML IV SCH ×2 (09:00→12:51)
--- NOTE | 2022-12-24 09:02 | OPERATIVE REPORT ---
DATE OF SERVICE: 12/24/2022 PREOPERATIVE DIAGNOSES: 1. A 32-year-old at 39 weeks' gestation. 2. Previous section. POSTOPERATIVE DIAGNOSES: 1. A 32-year-old at 39 weeks' gestation. 2. Previous section. PROCEDURE: Repeat low transverse section. SURGEON: Ramesh Morgan DO ANESTHESIA: Spinal. ESTIMATED BLOOD LOSS: 450 mL. URINE OUTPUT: 25 mL clear at the end of the procedure. FLUIDS: 1400 mL lactated Ringer's solution. FINDINGS: A live female infant weighing 6 pounds 9 ounces, Apgars of 8 and 9. Grossly normal appearing uterus, fallopian tubes and ovaries. SPECIMEN SENT: None. INDICATIONS FOR PROCEDURE: This 32-year-old female is a patient who sought care in my office. Her care was uncomplicated with exception for need for repeat . We discussed with the patient risk of repeat in the office. She was agreeable to proceed. Risk of bleeding, infection, damage to surrounding structures including but not limited to bowel, bladder, ureter, kidneys, possible need for reoperation, postoperative complications that may occur, recovery timeframe, risk from anesthesia and even were all discussed with the patient in detail. After all of her questions were answered, consent was obtained, the patient was taken to the operating room. OPERATIVE REPORT IN DETAIL: Once in the operating room, spinal analgesia was found to be adequate. She was placed in supine position with leftward tilt, prepped and draped in normal sterile fashion. Timeout was performed. Anesthesia was tested and then made a Pfannenstiel skin incision through a preexisting scar using knife and carried to underlying fascia using Bovie cautery. The fascial incision was extended laterally using Bovie cautery. The superior aspect of the fascial incision was then grasped with Jorden clamps, tented up and dissected off the underlying rectus muscles. The inferior aspect of the fascial incision was then grasped with Jorden clamps, tented up and dissected off the underlying rectus muscles. The rectus muscles were dissected sharply down the midline, which exposed the peritoneum, which I entered bluntly, extended using blunt traction. Mateusz ring retractor was placed in the peritoneal incision, which offers excellent lateral sidewall retraction. I identified lower uterine segment was found to be thinned out. I made a low transverse incision to the vesicouterine peritoneum and bluntly dissected off the lower uterine segment, creating a bladder flap. I then proceeded my myotomy until membranes were visualized, at which point I extended the uterine incision laterally and superiorly using bandage scissors. Amniotomy was then performed using Allis clamp. Clear fluid was noted. The infant was found in the breech presentation. This is a juanita breech. The 's buttocks was elevated up to the incision where it delivered through the incision up to the upper thoracic region, at which point I delivered the arms by sweeping them across the chest. I elevated the infant's body into the air and with gentle flexion delivered the 's head through the incision where the nares and oropharynx were bulb suctioned and infant has its cord duly clamped and cut and was handed off to waiting nurses in attendance. Cord blood was collected. Three-vessel cord intact placenta delivered spontaneously thereafter. IV Pitocin is initiated to facilitate uterine contraction. Uterine fundus confirmed by manual massage. The uterus was exteriorized and cleared of all endometrial clots and debris. I then proceeded with closing the uterine incision using 0 Vicryl suture in a running locked fashion. Second layer of imbricating 0 Monocryl was placed. Excellent hemostasis was noted after doing this. I then placed the uterus back in the pelvis and copiously irrigated the pelvis using normal saline. Once again, there was active bleeding from my dissection planes. I placed Interceed antiadhesive over my low transverse incision. I removed the Mateusz ring retractor and then proceeded with closing the peritoneum using 3-0 Vicryl suture in a running fashion. The rectus muscles were reapproximated using 3-0 Vicryl suture in interrupted fashion. The fascia was reapproximated using 0 Vicryl suture in a running fashion. The subcutaneous tissue was reapproximated using 3-0 plain interrupted subcutaneous stitch and skin reapproximated using 4-0 Monocryl in a running subcuticular. Dermabond was applied to incision, sterile dressing with adhesive white tape. The patient tolerated the procedure well and sent to recovery area in stable condition. Lap and sponge counts were correct at the end of the procedure. Instrument counts were correct as well. Two grams Ancef were given preoperatively for infection prophylaxis. Job ID: [id number] DocumentID: [id number] Dictated Date: 12/24/2022 08:28:11 Technical Service Representative Date: 12/24/2022 09:00:00 Dictated By: RAMESH MORGAN DO
[2022-12-24] MEDS: meTOproloL SUCCINATE 50 MG (TOPROL XL) TAB PO SCH (09:13)
[2022-12-24] MEDS: DOCUSATE SODIUM 100 MG (COLACE) CAP PO SCH ×2 (09:14→21:01)
[2022-12-24] MEDS: KETOROLAC 30 MG/ML VIAL IV SCH ×3 (09:32→21:01)
[2022-12-24] MEDS: METOCLOPRAMIDE 10 MG (REGLAN) TAB PO SCH ×3 (11:52→23:29)
[2022-12-24] MEDS: HYDROcodone/APAP 5 MG/325 MG (LORTAB) TAB PO PRN ×2 (11:53→17:44)
[2022-12-24] MEDS: CATHETER FLUSH 10 ML SYR IV SCH ×2 (14:00→21:01)
[2022-12-24] MEDS: SIMETHICONE 80 MG (MYLICON) CHEW PO SCH (23:29)
[2022-12-25 03:10] VITALS: BP 133/79
[2022-12-25] MEDS: HYDROcodone/APAP 5 MG/325 MG (LORTAB) TAB PO PRN ×3 (03:10→17:42)
[2022-12-25] MEDS: CATHETER FLUSH 10 ML SYR IV SCH (03:10)
[2022-12-25] MEDS: KETOROLAC 30 MG/ML VIAL IV SCH (03:10)
[2022-12-25 05:33] LABS: BASOPHILS % (AUTO) 0 % (0-10); EOSINOPHILS % (AUTO) 0 % (0-10); MEAN PLATELET VOLUME 11.4 fL (9.0-12.2)
[2022-12-25 05:35] LABS: HEMATOCRIT 28 % (35-52); HEMOGLOBIN 8.9 g/dL (11.5-16.0); LYMPHOCYTES # (AUTO) 1.3 10^3/uL (1.0-4.0); LYMPHOCYTES % (AUTO) 14 % (12-44); MEAN CORPUSCULAR HEMOGLOBIN 28 pg (25-34); MEAN CORPUSCULAR HGB CONC 32 g/dL (32-36); MEAN CORPUSCULAR VOLUME 87 fL (80-99); MONOCYTES # (AUTO) 0.6 10^3/uL (0.0-1.0); MONOCYTES % (AUTO) 6 % (0-12); NEUTROPHILS # (AUTO) 7.3 10^3/uL (1.8-7.8); NEUTROPHILS % (AUTO) 79 % (42-75); PLATELET COUNT 125 10^3/uL (130-400); WHITE BLOOD COUNT 9.3 10^3/uL (4.3-11.0)
--- NOTE | 2022-12-25 06:41 | Postpartum Progress Note ---
NATALIO CHI 12/25/22 0641: Note Note Day # 1 Subjective: Patient is without complaints. Ambulating, voiding. Tolerating a regular diet without nausea or vomiting. Normal lochia. Pain is well controlled with oral pain medications. Objective: Physical Exam: General - Alert and oriented, no apparent distress Abdomen - Soft, appropriately tender to palpation, non-distended, fundus firm at umbilicus Extremities - no edema, negative Jung's bilaterally Incision - Clean, dry and intact Assessment: Post- day # 1, status post section. Recovering well, hemodynamically stable Thrombocytopenia Acute on chronic blood loss anemia Plan: Routine care. Encourage breast feeding. Encourage ambulation. Ferrous sulfate supplementation. Plan for discharge 12/26/2022 Vitals - Labs Vital Signs - I&O Vital Signs Date Time Temp Pulse Resp B/P (MAP) Pulse Ox O2 Delivery O2 Flow Rate FiO2 12/25/22 03:10 36.1 85 18 133/79 (97) 98 Room Air 12/24/22 23:29 36.2 83 18 110/65 (80) 98 Room Air 12/24/22 21:00 36.1 86 18 126/76 (93) 99 Room Air 12/24/22 17:45 36.5 83 18 132/58 (82) 99 Room Air 12/24/22 15:21 36.4 88 18 114/64 (81) Room Air 12/24/22 11:54 36.4 93 18 119/67 (84) 98 Room Air 12/24/22 10:30 36.1 86 18 126/76 (93) 99 Room Air 12/24/22 09:20 35.9 14 107/85 (92) 97 Room Air 12/24/22 09:20 Room Air 12/24/22 09:05 35.5 16 107/85 (92) Room Air 12/24/22 08:50 36.8 20 119/65 (83) Room Air 12/24/22 08:35 36.1 18 122/79 (93) 96 Room Air 12/24/22 08:21 35.8 18 106/95 (99) 96 Room Air I & O 12/25/22 07:00 Intake Total 2550 ml Output Total 625 ml Balance 1925 ml Labs Laboratory Tests 12/25/22 05:21: White Blood Count 9.3, Red Blood Count 3.19L, Hemoglobin 8.9L, Hematocrit 28L, Mean Corpuscular Volume 87, Mean Corpuscular Hemoglobin 28, Mean Corpuscular Hemoglobin Concent 32, Red Cell Distribution Width 13.2, Platelet Count 125L, Mean Platelet Volume 11.4, Immature Granulocyte % (Auto) 1, Neutrophils (%) (Auto) 79H, Lymphocytes (%) (Auto) 14, Monocytes (%) (Auto) 6, Eosinophils (%) (Auto) 0, Basophils (%) (Auto) 0, Neutrophils # (Auto) 7.3, Lymphocytes # (Auto) 1.3, Monocytes # (Auto) 0.6, Eosinophils # (Auto) 0.0, Basophils # (Auto) 0.0, Immature Granulocyte # (Auto) 0.1, Percent Immature Platelet Fraction 5.4 GELA MORGAN DO 12/25/22 0712: Note Note Verification and Attestation of Medical Student E/M Service A medical student performed and documented this service in my presence. I reviewed and verified all information documented by the medical student and made modifications to such information, when appropriate. I personally performed the physical exam and medical decision making. Gela Morgan December 25, 2022,07:12 NATALIO CHI December 25, 2022 06:41 GELA MORGAN DO December 25, 2022 07:12
[2022-12-25] MEDS: METOCLOPRAMIDE 10 MG (REGLAN) TAB PO SCH ×2 (06:43→12:00)
[2022-12-25] MEDS: meTOproloL SUCCINATE 50 MG (TOPROL XL) TAB PO SCH (09:00)
[2022-12-25 09:35] VITALS: BP 134/80
[2022-12-25] MEDS: SIMETHICONE 80 MG (MYLICON) CHEW PO SCH ×2 (09:37→15:09)
[2022-12-25] MEDS: DOCUSATE SODIUM 100 MG (COLACE) CAP PO SCH ×2 (09:37→21:07)
[2022-12-25] MEDS: IBUPROFEN 600 MG (MOTRIN) TAB PO SCH ×3 (09:37→21:07)
--- NOTE | 2022-12-25 10:35 | Anesthesia-Regional Post-Op ---
Regional Patient Condition Mental Status: Alert, Oriented x3 Circulation: Same as Pre-Op Headache: Absent Sensation: Full Recovery Motor Block: Absent Post Op Complications Complications Patient c/o back soreness. Informed patient that it was not uncommon but gave signs and symptoms to follow up on if not better. Follow Up Care/Instructions Patient Instructions None needed. Anesthesia/Patient Condition Patient is doing well, no complaints, stable vital signs, no apparent adverse anesthesia problems. No complications reported per nursing. PIOTR MAC CREDIT CARD CONTROL CLERK December 25, 2022 10:35
[2022-12-25 15:09] VITALS: BP 124/80
[2022-12-25 21:09] VITALS: BP 124/75
[2022-12-26] MEDS: IBUPROFEN 600 MG (MOTRIN) TAB PO SCH ×2 (03:14→08:38)
[2022-12-26] MEDS: HYDROcodone/APAP 5 MG/325 MG (LORTAB) TAB PO PRN (03:14)
[2022-12-26 03:16] VITALS: BP 130/81
--- NOTE | 2022-12-26 07:40 | Postpartum Progress Note ---
NATALIO CHI 12/26/22 0740: Note Note Day # 2 Subjective: Patient is without complaints. Ambulating, voiding. Tolerating a regular diet without nausea or vomiting. Normal lochia. Pain is well controlled with oral pain medications. Objective: Physical Exam: General - Alert and oriented, no apparent distress Abdomen - Soft, appropriately tender to palpation, non-distended, fundus firm at umbilicus Extremities - no edema, negative Jung's bilaterally Incision - Clean, dry and intact Assessment: Post- day # 2, status post section. Recovering well, hemodynamically stable Acute on chronic anemia Plan: Routine care. Encourage breast feeding. Encourage ambulation. Ferrous sulfate supplementation. Plan for discharge 12/26/2022 Vitals - Labs Vital Signs - I&O Vital Signs Date Time Temp Pulse Resp B/P (MAP) Pulse Ox O2 Delivery O2 Flow Rate FiO2 12/26/22 03:16 36.3 83 18 130/81 (97) 99 Room Air 12/25/22 21:09 36.5 90 18 124/75 (91) 98 Room Air 12/25/22 15:09 36.3 89 18 124/80 (95) 99 Room Air 12/25/22 09:35 36.8 95 18 134/80 (98) 98 Room Air Labs Microbiology 12/24/22 MRSA Screen - Final, Complete MRSA not isolated GELA MORGAN DO 12/26/22 0803: Note Note Verification and Attestation of Medical Student E/M Service A medical student performed and documented this service in my presence. I reviewed and verified all information documented by the medical student and made modifications to such information, when appropriate. I personally performed the physical exam and medical decision making. Gela Morgan December 26, 2022,08:03 NATALIO CHI December 26, 2022 07:40 GELA MORGAN DO December 26, 2022 08:03
[2022-12-26 08:20] VITALS: BP 130/73
[2022-12-26] MEDS: DOCUSATE SODIUM 100 MG (COLACE) CAP PO SCH (08:38)
[2022-12-26 09:55] VITALS: BP 130/73
== END 2022-12-26 09:55 | disposition home or self-care (01) | DRG 787 ==
LOC: LDRP 05:35
PROVIDERS: ADMIT Obstetrics & Gynecology; ATTEND Obstetrics & Gynecology
PROC: 10D00Z1 Extraction of Products of Conception, Low, Open Approach (ICD-10-PCS; principal; 2022-12-24 07:18)
DX: O34.211 Maternal care for low transverse scar from previous cesarean delivery (principal); D62 Acute posthemorrhagic anemia; O32.1XX0 Maternal care for breech presentation, not applicable or unspecified; Z37.0 Single live birth; O99.03 Anemia complicating the puerperium; O72.3 Postpartum coagulation defects; D69.6 Thrombocytopenia, unspecified; Z3A.39 39 weeks gestation of pregnancy; Z88.2 Allergy status to sulfonamides; Z88.8 Allergy status to other drugs, medicaments and biological substances; Z79.899 Other long term (current) drug therapy
CPT/HCPCS: 36415; 80053; 85025; 86850; 86900; 86901; 87081; 94664